=== PATIENT | female | born 2005 | race Caucasian/White ===

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

== ENCOUNTER 2024-05-23 17:16 | Emergency (ER) | payer OTHER ==
[2024-05-23 17:51] VITALS: RESP 20; BMI 31.6
[2024-05-23] MEDS ORDERED: ACETAMINOPHEN 500 MG TABLET (FP) ONE (18:10)
[2024-05-23] MEDS: ACETAMINOPHEN 500 MG TABLET (FP) PO ONE (18:11)
[2024-05-23] MEDS: IBUPROFEN 600 MG TABLET (FP) PO ONE (18:50)
[2024-05-23] MEDS ORDERED: IBUPROFEN 600 MG TABLET (FP) PO ONE (18:50)
[2024-05-23 19:33] VITALS: BP 121/70; PULSE 102; TEMP 99.6
== END 2024-05-23 20:39 | disposition home or self-care (01) ==
LOC: JERFT 17:16
DX: J10.1 Influenza due to other identified influenza virus with other respiratory manifestations (principal); R09.81 Nasal congestion; J02.9 Acute pharyngitis, unspecified; M79.10 Myalgia, unspecified site; R00.0 Tachycardia, unspecified; R06.9 Unspecified abnormalities of breathing; Z20.822 Contact with and (suspected) exposure to COVID-19
CPT/HCPCS: 0241U-QW; 99283-25